=== PATIENT | female | born 1995 | race Caucasian/White ===

== ENCOUNTER → 2018-07-28 06:27 | Outpatient (CLI) | payer OTHER, SELFPAY ==
--- NOTE | 2018-07-28 07:00 | MRI_ITS ---
STUDY: MRI BRAIN WITH AND WITHOUT CONTRAST REASON FOR EXAM: Female, 23 years old. LEFT SIDED MIGRAINES. TECHNIQUE: Standardized multiplanar fat and water weighted pulse sequences were obtained. 6 ml of Gadavist contrast material was administered intravenously for the contrast portion of the examination. COMPARISON: None. FINDINGS: Normal size of the ventricles and extra-axial spaces for the patient's age. There is a small cyst in the choroidal fissure on the right side has no clinical significance measures 6 mm. Normal white matter tracts of the supratentorial brain. Normal bilateral basal ganglia. Normal thalami. There is no extra-axial fluid accumulation. Normal flow voids within the major intracranial circulation suggesting patency by spin echo criteria. Normal venous enhancement. There is no enhancing intra-axial or extra-axial abnormality. Normal sella turcica, pituitary gland, infundibular stalk, optic chiasm and hypothalamus. Normal tectal plate and pineal gland. Normal midbrain, nadja and medulla. Normal cerebellum. Normal basal cisterns. Normal bilateral temporal bones. Normal bilateral internal auditory canals. No demonstrated orbital abnormality, within the constraints of a routine brain study. Normal visualized paranasal sinuses. Normal calvarium and skull base. Normal visualized soft tissue structures. Normal visualized upper cervical spine. MRI/Brain W/WO Contrast IMPRESSION: Normal unenhanced and enhanced MRI of the brain. Electronically Signed: Prosper Short MD at 11:35 EDT Tel , Service support ,
== END ==
PROVIDERS: Family Provider Family Medicine; PCP Family Medicine
DX: R93.89 Abnormal findings on diagnostic imaging of other specified body structures (principal)
CPT/HCPCS: 70553; A9585

== ENCOUNTER → 2020-06-12 15:09 | Outpatient (CLI) | payer OTHER, SELFPAY ==
--- NOTE | 2020-06-12 15:33 | MRI_ITS ---
STUDY: MRI BRAIN WITH AND WITHOUT CONTRAST REASON FOR EXAM: Female, 25 years old. f/u to prev mri, cyst choroidal fissure, migraines TECHNIQUE: Standardized multiplanar fat and water weighted pulse sequences were obtained. IV Dotarem 14ml was administered for the contrast portion of the examination. COMPARISON: None. FINDINGS: Normal size of the ventricles and extra-axial spaces for the patient''s age. Normal white matter tracts of the supratentorial brain. Normal bilateral basal ganglia. Normal thalami. There is no extra-axial fluid accumulation. Normal flow voids within the major intracranial circulation suggesting patency by spin echo criteria. Normal venous enhancement. There is no enhancing intra-axial or extra-axial abnormality. There is stable right choroidal fissure cyst measures 6 mm. Normal sella turcica, pituitary gland, infundibular stalk, optic chiasm and hypothalamus. Normal tectal plate and pineal gland. Normal midbrain, nadja and medulla. Normal cerebellum. Normal basal cisterns. Normal bilateral temporal bones. Normal bilateral internal auditory canals. No demonstrated orbital abnormality, within the constraints of a routine brain study. Normal visualized paranasal sinuses. Normal calvarium and skull base. Normal visualized soft tissue structures. Normal visualized upper cervical spine. MRI/Brain W/WO Contrast IMPRESSION: No acute intracranial abnormality. There is stable right choroidal fissure cyst measures 6 mm. Electronically Signed: Prosper Short, at 7:58 EDT Tel , Service support ,
== END ==
PROVIDERS: PCP Family Medicine
DX: R90.89 Other abnormal findings on diagnostic imaging of central nervous system (principal)
CPT/HCPCS: 70553; A9575

== ENCOUNTER → 2021-03-17 | Outpatient (CLI) | payer OTHER, SELFPAY ==
[2021-03-17 14:14] VITALS: BMI 23.5
[2021-03-20 20:08] LABS: Chlamydia By Nucleic Acid AMP Negative (Negative)
[2021-03-21 14:26] LABS: HPV Reflexed? NOT INDICATED
[2021-03-21 15:07] LABS: Gonococcus By Nucleic Acid AMP Negative (Negative)
== END | disposition home or self-care (01) ==
LOC: LABSPEC 16:30
PROVIDERS: PCP Family Medicine; Referring Provider Nurse Practitioner Women's Health; Visit Provider Nurse Practitioner Women's Health
DX: Z11.3 Encounter for screening for infections with a predominantly sexual mode of transmission (principal); Z12.4 Encounter for screening for malignant neoplasm of cervix
CPT/HCPCS: 87491; 87591; 88175; G0145

== ENCOUNTER → 2021-07-12 | Outpatient (CLI) | payer OTHER, SELFPAY | END | disposition home or self-care (01) | PROVIDERS: PCP Family Medicine; Visit Provider Nurse Practitioner Family | DX: R51.9 Headache, unspecified (principal) | CPT/HCPCS: 87635; U0005; U0003 ==

== ENCOUNTER 2021-10-02 07:45 | Day surgery (SDC) | payer OTHER, SELFPAY ==
--- NOTE | 2021-10-02 | LYMN_PTH ---
PATIENT: JORDAN GONZALEZ [place] [facility] [id number] AGE/SX: 26/F ROOM: RE10/02/[address]: Dr. Saurav Thorne MD : 1995 BED: DIS: 10/02/2021 SPEC #: [id number] RECD: 10/02/21 10:46 STATUS: KAUSHIK JO-ANN #: [id number] JANE: 10/02/21 00:[address]: Saurav Thorne DEPT: SURGICAL PATHOLOGY RECD BY: Shy Moss ENTERED: 10/02/21 11:19 SP TYPE: LYMPH NODE OTHR DR: Leah Garnica, PEOPLESOFT PROGRAMMER-C Tissues: LYMPH NODE BIOPSY Procedures: Frozen Section (charge) Surgery Specimen Level IV HEADER OPERATION: Radical neck excision lymph node, open deep cervical node, frozen section PRE-OP DIAGNOSIS: Localized enlarged lymph nodes; history malignant melanoma of skin TISSUE SUBMITTED: Right deep cervical node, FS FROZEN SECTION DIAGNOSIS Right cervical lymph node, biopsy: One out of one lymph node negative for metastatic malignancy. AM:sara 10/02/2021 MICROSCOPIC DIAGNOSIS Right cervical lymph node, biopsy: One out of one lymph node negative for metastatic malignancy. See comment. AM:sara 10/05/2021 COMMENT Immunohistochemistry ([id number]) supports the above diagnosis. MICROSCOPIC DESCRIPTION Slides are reviewed. GROSS DESCRIPTION Received fresh for frozen section consultation labeled with the patient's name is a specimen designated cervical lymph node. The specimen consists of an ovoid fragment of jensen tissue measuring 1.5 x 0.5 x 0.5 cm. The specimen is submitted in its entirety for frozen section consultation in one block. / AM:sara 10/02/21 TC: 5 CPT: 54573, 60944
--- NOTE | 2021-10-02 | IMM_PTH ---
PATIENT: JORDAN GONZALEZ [place] [facility] [place][id number] AGE/SX: 26/F ROOM: RE10/02/[address]: Dr. Saurav Thorne MD : 1995 BED: DIS: 10/02/2021 SPEC #: [id number] RECD: 10/05/21 14:00 STATUS: KAUSHIK REQ #: [id number] JANE: 10/02/21 00:[address]: Saurav Thorne DEPT: IMMUNOHISTOCHEMISTRY RECD BY: Shy Moss ENTERED: 10/05/21 14:01 SP TYPE: IMMUNO OTHR DR: Leah Garnica, PACKER DENTURE-C Tissues: Lymph node of neck, NOS Procedures: CD20 (add) CD3 (add) CD45 (add) CD5 (add) CD79A (add) CK7 (add) Pankeratin (initial) MELAN-A (add) S-100 (add) PHYSICIAN & INSTITUTION [place] [id number] SPECIMEN INFORMATION: Tissue Source: Right cervical lymph node Clinical Info: Enlarged lymph node, history malignant melanoma of skin Specimen Number: [id number] CPT code: 13708, 99130 x8 METHODOLOGY: Deparaffinized sections of prefer/formalin-fixed tissue or PAP/DQ stained slides are incubated with monoclonal/polyclonal antibodies/oligonucleotide probes. Localization is made via biotin free immunoperoxidase method. Appropriate controls are performed and reacted as expected. Results on target cell population are indicated in the following table: RESULTS: ANTIBODY / CLONE RESULT AE1-3 (AE1/AE3/PCK26) negative CK7 (OV-TL12/30) negative CD3 (PS1) positive CD5 (SP10) positive CD20 (L26) positive CD45 (RP2/18) positive CD79a (11E3) positive Melan A (A103) negative S-100 (4C4.9) negative These tests were developed and their performance characteristics determined by [facility]. They may not have been cleared or approved by the U.S. Food and Drug Administration. The FDA has determined that such clearance or approval is not necessary. The above immunohistochemical/dualISH markers are ordered and reviewed by the Pathologist. INTERPRETATION: Right cervical lymph node, biopsy: No evidence of malignancy. AM:sara 10/06/2021
[2021-10-02 08:17] VITALS: BP 117/72; PULSE 80; RESP 16; TEMP 37; O2SAT 100; BMI 24.0
[2021-10-02 08:17] LABS: Internal QC Validated? YES +Cl - CLEAR BKGD
[2021-10-02 08:23] LABS: Pregnancy, Urine Negative Negative
[2021-10-02] MEDS: Lactated Ringers 1,000 ML 100 ML IV (08:27)
[2021-10-02] MEDS: Lidocaine 1% /Epi 1:100 (20ml) 20 ML Vial (10:08)
--- NOTE | 2021-10-02 10:57 | OP.PCM_ITS ---
Problems Associated Problem List Diagnoses (1) Cervical lymphadenopathy: (2) History of melanoma: Report of Operation Date of Procedure: 10/02/21 Pre-Operative Diagnosis: Suspicious right submental lymph node with history of facial melanoma Post-Operative Diagnosis: Same Surgery/Procedure Performed:: Excision of right deep cervical lymph node Description of Surgical Findings:: Sara is a 26-year-old female who presents for evaluation of a enlarged right submental lymph node that had some abnormal findings on ultrasound in the setting of prior history of facial melanoma. Give n this excision for pathologic evaluation for possible recurrent disease was advised. The risks, alternatives, potential complications, and benefits were discussed at length and any questions answered to the patient and/or caregiver's satisfaction. Witnessed informed consent was obtained in the office, and the patient and/or caregiver was agreeable to proceed. Procedure went as follows: The patient was identified in preoperative holding and brought to the operating room, placed under general anesthesia and intubated. When appropriate anesthesia was obtained, the right neck was prepped and draped in usual sterile fashion. The planned incision site was then injected with 1% lidocaine with 100,000 epinephrine for a total of [2] mL. After allowing for vasoconstriction, a skin incision 2 fingerbreadths below the angle of the mandible was then created to 15 blade scalpel through the skin subcutaneous tissues and platysma. Dissection was then carried out along the submandibular gland where a 1 cm lymph node associated with the facial artery was identified. This was dissected free of the surrounding tissue using bipolar cautery for hemostasis. The node was then sent for pathologic specimen. This confirmed lymph node tissue with some loss of the central liliya consistent with the ultrasound finding but no suggestion of melanoma on initial inspection. The wound was then closed deeply with interrupted 3-0 Vicryl sutures closing the space and reapproximating the platysma and subcutaneous tissues. A running 5-0 Monocryl subcuticular stitch was then placed to close the skin followed by Cavilon and Steri-Strips. The patient was then returned to anesthesia, was revived and extubated without complication having tolerated the procedure well. Surgeon: Saurav Thorne Type of Anesthesia: General Anesthesiologist: Nicola Garcia Specimen's removed: right submental lymph node Drains: none Estimated Blood Loss (mL): 0 mL Fluids Replaced: 1200 mL Grafts/Implants Used: none Complications none Admit VTE Documentation VTE Present on Admission: No VTE Mechan Device Prophylaxis: SCD's VTE Pharm Prophylaxis ordered?: No Reason prophylaxis not ordered:: Procedure Not Indicated
--- NOTE | 2021-10-02 11:09 | PCM.DC ---
Discharge Instructions Diet Discharge Diet: No restrictions Activity Discharge Activity: Return to Normal Activity Dressing / Incision Call your doctor if your incision/area has: Increased Pain/ Swelling and Foul Smelling Discharge Call your doctor if you observe: Fever of 101 or Higher and Uncontrolled pain Cleanse incision/area with: Do not get Incision Wet Follow Up Care Please Follow Up With: Saurav Thorne MD When: 2 weeks Test Results: Test results from this visit will be discussed in further detail at your follow-up appointment, if applicable. Discharge Plan Admission Primary Reason for Your Visit: enlarged lymph node, history of melanoma Attending Provider: Saurav Thorne Primary Care Provider: Leah Garnica NP Discharge Orders/Prescriptions Prescriptions: New acetaminophen 500 mg Tablet 500 mg PO Q4H PRN PRN (Reason: Pain Score 1-5/10) Qty: 0 RF: 0 ibuprofen 200 mg Tablet 400 mg PO Q6H PRN PRN (Reason: Pain Score 4-10/10) Qty: 0 RF: 0 Continued Aimovig Autoinjector 70 mg/mL auto-injector 140 mg subcut QMONTH RF: 0 zolmitriptan [Zomig] 2.5 mg tablet See Rx Instructions PO .COMPLEX RF: 0 multivitamin with minerals [Hair,Skin and Nails] Tablet 1 tab PO DAILY RF: 0 Rosamaria-[place] PM (melatonin) 250-1.5 mg Tablet,Chewable 1 tab PO QHS RF: 0 Referrals / Follow Up: Leah Garnica NP, ROLL GRINDER OPERATOR-C [Primary Care Provider] - Disposition Disposition (needs filled in before D/C Order can be placed): Home, Self Care
[2021-10-02 11:15] VITALS: BP 113/79; BP 117/72; PULSE 76; RESP 14; TEMP 36.7; O2SAT 98
[2021-10-02 11:30] VITALS: BP 104/67; BP 117/72; PULSE 79; RESP 16; O2SAT 100
[2021-10-02 11:45] VITALS: BP 113/74; BP 117/72; PULSE 73; RESP 16; TEMP 36.6; O2SAT 100
[2021-10-02 12:20] VITALS: BP 117/72
== END 2021-10-02 12:22 | disposition home or self-care (01) ==
LOC: SDC 07:48 → AC 07:49
PROVIDERS: Anesthesiology; PCP Nurse Practitioner Family; Referring Provider Otolaryngology; Visit Provider Otolaryngology
PROC: 07T10ZZ Resection of Right Neck Lymphatic, Open Approach (ICD-10-PCS; CPT 38724; principal; 2021-10-02 09:05)
DX: R59.0 Localized enlarged lymph nodes (principal); Z85.820 Personal history of malignant melanoma of skin; Z86.16 Personal history of COVID-19
CPT/HCPCS: 00320; 38510; 81025; 88305; 88331; 88341; 88342; J7120; J2405

== ENCOUNTER 2022-05-05 17:18 | Emergency (ER) | payer OTHER, SELFPAY ==
[2022-05-05 17:19] VITALS: BP 126/86; PULSE 81; RESP 16; TEMP 36.8; O2SAT 100; BMI 24.1
--- NOTE | 2022-05-05 17:57 | EDS_ITS ---
HPI History of Present Illness Chief Complaint: Headache Informant: patient Onset/Context/Timing Onset: Yesterday Context: Gradual Timing: Continuous Quality -Headache: Positive for Similar Prior Headaches and Throbbing Location: Frontal Worsened by: Nothing Relieved by: Nothing Associated Symptoms/Injury Associated Symptoms: Positive for Sinus Pressure, Numbness, Tingling, Visual Changes and Photophobia; Negative for Fever, Nausea, Vomiting, Sore Throat or Visual Loss Narrative Narrative: Patient presents with a migraine headache that began yesterday. Patient states that at the beginning of the year her migraine medication was switched by her insurance company. Patient states that she has been having some migraine headaches daily. Since that time. Patient states that yesterday her migraine headache became worse. Patient states it is over the frontal area and behind her eyes. Patient describes it as throbbing. Patient states it is similar to prior headaches. Patient admits to some sinus pressure. Patient also admits to some floaters in her vision which is typical of her migraine headaches. Patient also admits to some photophobia. PFSH PFSH Medical History Alcohol use Anxiety Cancer COVID-19 Depression Difficulty swallowing Easy bruising History of echocardiogram Melanoma Migraine Non-smoker Home Medications erenumab-aooe 70 mg/mL subcutaneous auto-injector (Aimovig Autoinjector) 140 mg subcut QMONTH 03/17/21 [History Last Taken Unknown] multivitamin with minerals (Hair,Skin and Nails tablet) 1 tab PO DAILY 03/17/21 [History Last Taken Unknown] zolmitriptan 2.5 mg tablet (Zomig) See Rx Instructions PO .COMPLEX 03/17/21 [History Last Taken Unknown] calcium phosphate,tribasic 250 mg-melatonin 1.5 mg chewable tablet (Candice PM (with melatonin)) 1 tab PO QHS 09/25/21 [History Last Taken Unknown] acetaminophen 500 mg tablet 500 mg PO Q4H PRN PRN Pain Score 1-5/10 #0 tabs 10/02/21 [Rx Last Taken Unknown] ibuprofen 200 mg tablet 400 mg PO Q6H PRN PRN Pain Score 4-10/10 #0 tabs 10/02/21 [Rx Last Taken Unknown] Allergy/AdvReac Type Severity Reaction Status Date / Time No Known Allergies Allergy Verified 05/05/22 17:20 Family History Grandfather Prostate cancer Aunt Breast cancer Surgical History History of surgical removal of skin lesion Hx of wisdom tooth extraction Social History household members: family number of children: 0 current occupational status: employed current occupation: [employer] history of recent travel: No sexually active: No Smoking Status: Never smoker alcohol intake: current alcohol intake frequency: holidays/special occasions only substance use type: does not use what type of physical activity do you participate in: none and other seatbelt use: always do you feel safe at home: Yes additional social history: single ROS ROS ED Constitutional Constitutional ED: Denies chills or fever(s) Eyes Eyes: Denies blurry vision or change in vision ENT ENT ED: Denies rhinorrhea or sore throat Cardiovascular Cardiovascular: Denies chest pain or palpitations Respiratory/Chest Respiratory/Chest: Reports cough; Denies dyspnea Gastrointestinal Gastrointestinal: Denies nausea or vomiting Genitourinary Genitourinary ED: Denies dysuria or hematuria Musculoskeletal Musculoskeletal: Reports neck pain; Denies back pain Integumentary Denies abscess or rash Neurologic Neurologic: Reports headache(s); Denies weakness Allergic/Immunologic Allergic/Immunologic ED: Denies mouth swelling or urticaria EXAM Physical Exam Const Vital Signs: 05/05/22 17:19 Temperature 98.2 F Temperature Source Temporal Pulse Rate 81 Respiratory Rate 16 Blood Pressure 126/86 H Blood Pressure Mean 99 Pulse Ox 100 Oxygen Delivery Method Room Air Positive well nourished and well developed General Appearance ED: well developed HEENT Reports moist mucous membranes Neck supple and no JVD Resp normal respiratory effort and clear to auscultation bilaterally Cardio regular rate, regular rhythm and no murmurs GI normal to inspection, nondistended, normoactive bowel sounds and non-tender Palpation: soft Extremity normal to inspection General Extremety ED: Negative for edema or tenderness General Extremity: Negative for edema Neuro oriented x3, CN's II-XII intact bilaterally and no sensory deficits noted Sensorium / Orientation: alert Motor Exam: strength 5/5 throughout Psych mental status grossly normal Skin no rashes or lesions noted MDM MDM MDM Narrative Medical decision making narrative: Patient was given IV fluids, Reglan, Benadryl, and Toradol. Shortly after receiving the medications, patient states she was feeling anxious and was started to have a panic attack. She requested that the IV be removed. This was done before she completed the IV fluid bolus. Patient then wanted to leave the emergency department. Patient left prior to receiving her discharge instructions. Discharge Plan Triage Chief Complaint: Headache ED Provider: Saurav Mckenna Dx/Rx/DC Orders Clinical Impression: Migraine with aura, Headache Instructions: ED, Migraine (Classical) Prescriptions: No Action Aimovig Autoinjector 70 mg/mL auto-injector 140 mg subcut QMONTH zolmitriptan [Zomig] 2.5 mg tablet See Rx Instructions PO .COMPLEX Rx Instructions: take 1 tab at onset of headache; if no relief may repeat 1 tab after at least 2 hrs; max = 4 tabs/24 hr PO multivitamin with minerals [Hair,Skin and Nails] Tablet 1 tab PO DAILY Rosamaria-[place] PM (melatonin) 250-1.5 mg Tablet,Chewable 1 tab PO QHS acetaminophen 500 mg Tablet 500 mg PO Q4H PRN PRN (Reason: Pain Score 1-5/10) Qty: 0 0RF ibuprofen 200 mg Tablet 400 mg PO Q6H PRN PRN (Reason: Pain Score 4-10/10) Qty: 0 0RF Primary Care Provider: Leah Garnica NP Referrals: Leah Garnica NP, MANAGER FOOD SAFETY-C [Primary Care Provider] - 5-7 Days Disposition Disposition: Home, Self Care Discharge Date/Time: 05/05/22 18:46
[2022-05-05] MEDS: Metoclopramide 10 MG/2 ML Vial IV (18:08)
[2022-05-05] MEDS: 0.9% Normal Saline 1,000 ML 999 ML IV (18:08)
[2022-05-05] MEDS: DiphenhydrAMINE 50 MG/ML Syringe 25 MG IV (18:08)
[2022-05-05] MEDS: Ketorolac 15 MG/ML Vial IV (18:14)
--- NOTE | 2022-05-05 18:22 | ED.RN ---
Patient having panic attack when RN walked into patients room from IV being in arm. Patient requesting IV be taken out GEOVANI. RN informed her she needs still needs IV toradol. Patient states she wants the medications and IV to be taken out after and would like to leave. RN has discontinued IV. Dr. Mckenna notified.
--- NOTE | 2022-05-05 18:41 | ED.RN ---
patient states she is feeling better and has walked out of ED with her mother. Dr. Mckenna notified.
== END 2022-05-05 18:46 | disposition home or self-care (01) ==
LOC: ED 18:02
PROVIDERS: Emergency Provider Emergency Medicine; PCP Nurse Practitioner Family; Visit Provider Emergency Medicine
DX: G43.109 Migraine with aura, not intractable, without status migrainosus (principal); Z86.16 Personal history of COVID-19; F32.A Depression, unspecified; F41.9 Anxiety disorder, unspecified; Z85.820 Personal history of malignant melanoma of skin; Z79.899 Other long term (current) drug therapy
CPT/HCPCS: 96374; 96375; 99283; A4216

== ENCOUNTER → 2022-08-09 | Outpatient (CLI) | payer OTHER, SELFPAY ==
--- NOTE | 2022-08-09 08:08 | MRI_ITS ---
STUDY: MRI BRAIN WITH AND WITHOUT CONTRAST REASON FOR EXAM: Female, 27 years old. MIGRAINE WITHOUT AURA TECHNIQUE: Standardized multiplanar fat and water weighted pulse sequences were obtained. IV 13 CC CLARISCAN was administered for the contrast portion of the examination. COMPARISON: MRI brain with and without contrast 06/12/2020. FINDINGS: Normal size of the ventricles and extra-axial spaces for the patient''s age. Normal white matter tracts of the supratentorial brain. Small nonenhancing benign arachnoid cyst in the right choroidal fissure is unchanged. This measures 5 x 5.5 mm (series 5, image 7). Normal bilateral basal ganglia. Normal thalami. There is no extra-axial fluid accumulation. Normal flow voids within the major intracranial circulation suggesting patency by spin echo criteria. Normal venous enhancement. There is no enhancing intra-axial or extra-axial abnormality. Normal sella turcica, pituitary gland, infundibular stalk, optic chiasm and hypothalamus. Normal tectal plate and pineal gland. Normal midbrain, nadja and medulla. Normal cerebellum. Normal basal cisterns. Normal bilateral temporal bones. Normal bilateral internal auditory canals. No demonstrated orbital abnormality, within the constraints of a routine brain study. Normal visualized paranasal sinuses. Normal calvarium and skull base. Normal visualized soft tissue structures. Normal visualized upper cervical spine. MRI/Brain W/WO Contrast IMPRESSION: 5 x 5.5 mm nonenhancing benign arachnoid cyst in the right choroidal fissure. Otherwise negative MRI brain with and without contrast and unchanged when compared to 06/12/2020. Electronically Signed: Lam Rogers MD at 14:03 EDT ,
== END | disposition home or self-care (01) ==
LOC: MRI 07:55
PROVIDERS: PCP Nurse Practitioner Family
DX: G43.009 Migraine without aura, not intractable, without status migrainosus (principal)
CPT/HCPCS: 70553; A9575

== ENCOUNTER 2022-09-09 12:37 | Outpatient (CLI) | payer OTHER, SELFPAY ==
[2022-09-09 13:39] LABS: hCG Titer Quant., Serum < 1 mIU/mL (1-3)
== END 2022-09-09 23:59 | disposition home or self-care (01) ==
LOC: PAVLAB 12:38
PROVIDERS: PCP Nurse Practitioner Family; Referring Provider Obstetrics & Gynecology; Visit Provider Obstetrics & Gynecology
DX: N91.2 Amenorrhea, unspecified (principal)
CPT/HCPCS: 36415; 84702

== ENCOUNTER 2022-09-20 15:56 | Outpatient (CLI) | payer OTHER, SELFPAY ==
[2022-09-22 22:06] LABS: Chlamydia By Nucleic Acid AMP Negative (Negative)
[2022-09-22 22:52] LABS: Gonococcus By Nucleic Acid AMP Negative (Negative)
== END 2022-09-20 23:59 | disposition home or self-care (01) ==
LOC: LABSPEC 15:58
PROVIDERS: PCP Nurse Practitioner Family; Visit Provider Nurse Practitioner Women's Health
DX: Z11.3 Encounter for screening for infections with a predominantly sexual mode of transmission (principal)
CPT/HCPCS: 87491; 87591

== ENCOUNTER → 2023-06-14 | Outpatient (CLI) | payer OTHER, SELFPAY ==
--- NOTE | 2023-06-14 14:15 | US_ITS ---
EXAM: Diagnostic bilateral breast mammogram and diagnostic unilateral right breast ultrasound REASON FOR EXAM: Female, 28 years old. Right axilla pain and heaviness for 2 months duration PERTINENT HISTORY: Multiple paternal female family members with breast cancer including aunt, cousin, and grandmother. TECHNIQUE: Digital bilateral breast clary (3D mammographic acquisition) in the CC and MLO projections. 2-D mediolateral oblique (MLO) and craniocaudad (CC) views of the bilateral breasts were obtained. CAD: Full Field Digital Mammography with Computer Added Detection was performed. Real-time pleitez scale and color sonographic images were obtained of the right axilla and right upper outer quadrant breast from the 6:00 to 12:00 position in the clinical area of palpable finding. COMPARISON: None. FINDINGS: Mammogram findings: Breast Composition: The breasts are extremely dense, which lowers the sensitivity of mammography. There are no dominant masses or suspicious calcifications. No other significant findings. Ultrasound was obtained of the right upper outer breast and right axilla in the clinical area of concern. Ultrasound findings: There are benign-appearing normal lymph nodes in the right axilla that are not enlarged in short axis and demonstrate normal fatty hilum. There is a benign-appearing nonenlarged 0.9 x 0.9 x 0.2 cm intramammary lymph node at the 9:00 position of the right breast, approximately 10 cm posterior to the nipple. No abnormal fluid collections or abnormal masses in the imaged right breast and right axilla. US/Breast Limited Unilateral IMPRESSION: Negative diagnostic mammogram. Normal benign-appearing lymph nodes in the right upper outer breast and right axilla in the clinical area of concern with no suspicious findings. ASSESSMENT CATEGORY: BIRADS Category 2: Benign. A letter regarding these results will be sent to the patient by the facility within 30 days. Recommendation: No further assessment is recommended. Repeat ultrasound and mammogram can be obtained if clinical concerns for new or enlarging palpable finding on physical examination. Approximately 10% of breast cancers are not detected by mammography. A normal mammogram should not delay biopsy of a clinically suspicious abnormality. Electronically Signed: Som Goldsmith DO at 16:33 EDT ,
== END | disposition home or self-care (01) ==
PROVIDERS: PCP Nurse Practitioner Adult Health; Referring Provider Nurse Practitioner Women's Health; Visit Provider Nurse Practitioner Women's Health
DX: N64.4 Mastodynia (principal); Z85.820 Personal history of malignant melanoma of skin; R59.0 Localized enlarged lymph nodes
CPT/HCPCS: 76642; 77062; 77066; G0279

== ENCOUNTER → 2023-07-12 | Outpatient (CLI) | payer OTHER, SELFPAY ==
--- NOTE | 2023-07-12 06:41 | MRI_ITS ---
EXAM: MR CERVICAL SPINE WITHOUT INTRAVENOUS CONTRAST CLINICAL INDICATION: CERVACALGIA, C/O HAND NUMBNESS BILATERALLY TECHNIQUE: Multiplanar and multisequence MR images of the cervical spine without intravenous contrast were performed. COMPARISON: No relevant prior studies available. FINDINGS: VERTEBRAE: Normal vertebral bodies and posterior elements. Loss of the normal cervical lordosis which may be due to muscle spasm or head positioning. Normal craniocervical junction and cervicothoracic junction. No spondylolisthesis. SPINAL CORD: Unremarkable in signal and morphology. SOFT TISSUES: Normal. No prevertebral soft tissue swelling. LYMPH NODES: Normal. There is no cervical adenopathy. DISCS/SPINAL CANAL/NEURAL FORAMINA: C2-C3: Normal. Normal disc height and morphology. Normal spinal canal. Normal neuroforamina. C3-C4: Normal. Normal disc height and morphology. Normal spinal canal. Normal neuroforamina. C4-C5: Normal. Normal disc height and morphology. Normal spinal canal. Normal neuroforamina. C5-C6: Mild disc space narrowing. Mild central bulging of the disc without impingement on the spinal canal. Intact neural foramina. C6-C7: Normal. Normal disc height and morphology. Normal spinal canal. Normal neuroforamina. C7-T1: Normal. Normal disc height and morphology. Normal spinal canal. Normal neuroforamina. MRI/Spine Cervical (Routine) IMPRESSION: Unremarkable MRI of the cervical spine. Electronically Signed: Estuardo Bland MD at 12:22 EDT ,
== END | disposition home or self-care (01) ==
LOC: MRI 06:30
PROVIDERS: PCP Nurse Practitioner Adult Health
DX: M54.2 Cervicalgia (principal)
CPT/HCPCS: 72141

== ENCOUNTER → 2024-05-30 | Outpatient (CLI) | payer OTHER, SELFPAY ==
--- NOTE | 2024-05-30 10:20 | MRI_ITS ---
STUDY: MRI ARTHROGRAM OF THE RIGHT HIP REASON FOR EXAM: Female, 29 years old. CONGENITAL DEFORMITIES, SPRAIN -- ARTHROGRAM TECHNIQUE: 10 mL of dilute Clariscan contrast was injected into the right hip joint. MRI was obtained in all 3 orthogonal planes. COMPARISON: None. FINDINGS: Normal right hip joint without articular joint space narrowing. Intact acetabulum. Normal labrum. Normal femoral head. Normal femoral neck and intratrochanteric region. There is no demonstrated fracture. Normal gluteus minimus, medius and iliopsoas tendons and distal insertions. There is no trochanteric, iliopsoas or iliopectineal bursitis. Normal superior and inferior pubic rami. Normal ischial tuberosity. Normal origin of the hamstring tendons. Normal visualized iliac wing. Normal visualized soft tissue structures of the pelvis. MRI/Lower Ext/Jt Only/W Contrast IMPRESSION: Unremarkable MRI arthrogram of the right hip. Electronically Signed: Benedict Enrique MD at 15:25 EDT ,
[2024-05-30] MEDS: Lidocaine 2% (5ml sdv) 5 ML VIAL.MPF INFILT (10:45)
[2024-05-30] MEDS: Iopamidol 10 ML in Syringe 1 EACH 600 ML INTRAARTIC (10:50)
[2024-05-30] MEDS: Gadoterate Meglumine Diluted 10 ML, Iopamidol 5 ML, Lidocaine 1% (20 ml mdv) 5 ML, Epin... INTRAARTIC (10:50)
--- NOTE | 2024-05-30 11:46 | PRO.PCM_ITS ---
Procedure Report Date of Procedure: 05/30/24 Assessment & Plan Assessment/Plan (1) Right hip pain: PLAN: PROCEDURE: Arthrogram-right hip ORDERING PROVIDER: Vivian Wu PA-C INDICATION: Female, 29 years old. Right hip pain. FLUOROSCOPY TIME (if supplied): 0 minutes/36 seconds. 13.37 mGy PROVIDER: Ciera Weathers ACID BLEACHER-TRAFFIC SAFETY ADMINISTRATOR CONSENT: The procedure as well as the benefits and possible complications including bleeding and infection were explained to the patient. Informed consent was obtained. TECHNIQUE: The patient was positioned supine. The overlying skin was prepped and draped in the usual sterile fashion. Following injection of local anesthetic with 2% lidocaine and under direct fluoroscopic guidance, a 22-gauge spinal needle was placed into the right hip joint. 2 cc of Isovue 300 was injected for confirmation. Following this, 10 cc of arthrogram contrast (gadoterate, iopamidol, lidocaine, and epinephrine), compounded by pharmacy, was injected. All elements of maximal sterile barrier technique followed. Patient tolerated procedure well. IMPRESSION: Successful fluoroscopic guided right hip arthrogram. Procedures Radiology Radiology Xray Procedures: [id number] Arthrogram Hip Multi Select Codes Radiology Rad Xray Procedures: [id number] Fluoroscopic guidance for needle placement
== END | disposition home or self-care (01) ==
LOC: RAD 10:09
PROVIDERS: PCP Registered Nurse; Referring Provider Physician Assistant Surgical; Visit Provider Physician Assistant Surgical
DX: Q65.89 Other specified congenital deformities of hip (principal); S73.191A Other sprain of right hip, initial encounter; M25.551 Pain in right hip
CPT/HCPCS: 20610; 27093; 73722; 77002; Q9967